=== PATIENT | female | born 1955 | race Caucasian/White ===

== ENCOUNTER 2020-04-27 07:45 | Outpatient (CLI) | payer MEDICARE ==
[~2020-04-27 07:45] MED LIST: ASPI-191 PO; DEXA4TAB PO; ISOS30TA8 PO; ISOSORBIDE PO; LOVA20TA2 PO; MELA5TAB14 PO; MELO7.5T31 PO; METO25TA35 PO; OXYC1TAB14 PO; SENN-211 PO; VITAMIN D
== END 2020-04-27 23:59 | disposition home or self-care (01) ==
LOC: ROC 07:45
PROVIDERS: ATTEND Radiology Radiation Oncology
DX: C79.31 Secondary malignant neoplasm of brain (principal); I25.10 Atherosclerotic heart disease of native coronary artery without angina pectoris; J43.9 Emphysema, unspecified; I13.0 Hypertensive heart and chronic kidney disease with heart failure and stage 1 through stage 4 chronic kidney disease, or unspecified chronic kidney disease; I50.9 Heart failure, unspecified; N18.9 Chronic kidney disease, unspecified; E78.5 Hyperlipidemia, unspecified; E87.1 Hypo-osmolality and hyponatremia; Z90.710 Acquired absence of both cervix and uterus; Z87.891 Personal history of nicotine dependence
CPT/HCPCS: 99214; G0463

== ENCOUNTER 2020-08-29 22:58 | Inpatient (IN) | payer MEDICARE ==
[~2020-08-29] VITALS: Ht 157.5 cm; Wt 64.8 kg
[2020-08-30 00:45] VITALS: BP 114/74
[2020-08-30 02:00] VITALS: BP 114/70
[2020-08-30] MEDS ORDERED: MORPHINE SULFATE 4 MG/ML, 1ML ONE (02:22)
[2020-08-30] MEDS: morphine SULFATE 10 MG/ML, 1ML IVPush PRN ×3 (02:25→11:49)
[2020-08-30] MEDS ORDERED: HEPARIN 5,000 UNITS/ML, 1ML IV ONE (02:30)
[2020-08-30] MEDS ORDERED: ONDANSETRON 2MG/ML, 2ML IVPush PRN (02:30)
[2020-08-30] MEDS ORDERED: LIDODERM 5% PATCH TD PRN (02:30)
[2020-08-30] MEDS ORDERED: LOPERAMIDE 2 MG CAPSULE PO PRN (02:30)
[2020-08-30] MEDS ORDERED: LACTATED RINGERS 1,000 ML IV SCH (02:30)
[2020-08-30] MEDS ORDERED: GUAIFENESIN/DM 200-20MG, 10ML UDC PO PRN (02:30)
[2020-08-30] MEDS ORDERED: CYCLOBENZAPRINE 10 MG TABLET PO PRN (02:30)
[2020-08-30] MEDS ORDERED: MELATONIN 5 MG TABLET PO PRN (02:30)
[2020-08-30] MEDS ORDERED: IBUPROFEN 600 MG TABLET PO PRN (02:30)
[2020-08-30] MEDS ORDERED: DOCUSATE 100 MG CAPSULE PO PRN (02:30)
[2020-08-30] MEDS ORDERED: ENALAPRILAT 1.25 MG/ML, 2ML IVPush PRN (02:30)
[2020-08-30] MEDS: HEPARIN 25,000 UNITS/250ML PMX 250 ML IV PRN (03:01)
[2020-08-30 03:09] LABS: BASOPHILS % (AUTO) 1 % (0-1); EOSINOPHILS % (AUTO) 0 % (1-7); LYMPHOCYTES % (AUTO) 13 % (22-44); MEAN CORPUSCULAR HEMOGLOBIN 29.9 pg (27.0-34.8); MEAN CORPUSCULAR HGB CONC 32.9 g/dL (32.4-35.8); MEAN PLATELET VOLUME 9.2 fL (7.4-10.4); MONOCYTES % (AUTO) 12 % (2-9); NEUTROPHILS % (AUTO) 75 % (42-75); PLATELET COUNT 196 x10^3/uL (130-400); RED BLOOD COUNT 4.42 x10^6/uL (3.82-5.3); RED CELL DISTRIBUTION WIDTH 15.3 % (9.6-15.2)
[2020-08-30 03:21] LABS: ALBUMIN 2.6 g/dL (3.4-5.0); ANION GAP 7 mmol/L (5-15); CALCIUM 8.6 mg/dL (8.5-10.1); CHLORIDE 109 mmol/L (98-107); CREATININE 0.86 mg/dL (0.55-1.02)
[2020-08-30 03:26] LABS: TROPONIN I 0.401 ng/mL (0.000-0.045)
[2020-08-30] MEDS: HYDROcodone/APAP 5/325 TABLET PO PRN ×4 (05:00→20:53)
[2020-08-30] MEDS: METOPROLOL TARTRATE 25 MG TAB PO SCH ×4 (06:01→20:44)
[2020-08-30 06:58] VITALS: BP 95/68
[2020-08-30 08:45] LABS: TROPONIN I 0.268 ng/mL (0.000-0.045)
[2020-08-30] MEDS ORDERED: ISOSORBIDE MONONITRATE ER 30 MG TABLET PO SCH (09:00)
[2020-08-30] MEDS ORDERED: FAMOTIDINE 20 MG TABLET PO SCH (09:00)
[2020-08-30] MEDS ORDERED: MORPHINE SULFATE 4 MG/ML, 1ML IV ONE (09:30)
[2020-08-30] MEDS ORDERED: MORPHINE SULFATE 4 MG/ML, 1ML IVPush ONE (09:30)
[2020-08-30] MEDS: HEPARIN 5,000 UNITS/ML, 1ML IV PRN ×2 (10:00→16:57)
[2020-08-30 12:37] VITALS: BP 91/62
[2020-08-30] MEDS: LACTOBACILLUS CHEW TABLET PO SCH ×2 (18:04→20:44)
[2020-08-30 18:08] VITALS: BP 92/63
[2020-08-30 20:07] VITALS: BP 102/69
[2020-08-30] MEDS: FAMOTIDINE 20 MG TABLET PO SCH (20:44)
[2020-08-30] MEDS ORDERED: LOVASTATIN 20 MG TABLET PO SCH (21:00)
[2020-08-30] MEDS: TEMAZEPAM 15 MG CAPSULE PO PRN (23:25)
[2020-08-31 00:28] VITALS: BP 100/62
[2020-08-31] MEDS ORDERED: ALBUTEROL/IPRATROPIUM 2.5MG/0.5MG, 3 ML NPPB PRN (01:30)
[2020-08-31] MEDS: morphine SULFATE 10 MG/ML, 1ML IVPush PRN ×4 (04:44→15:39)
[2020-08-31] MEDS: HEPARIN 25,000 UNITS/250ML PMX 250 ML IV PRN (05:49)
[2020-08-31 06:17] LABS: BASOPHILS % (AUTO) 1 % (0-1); EOSINOPHILS % (AUTO) 0 % (1-7); LYMPHOCYTES % (AUTO) 12 % (22-44); MEAN CORPUSCULAR HEMOGLOBIN 30.1 pg (27.0-34.8); MEAN CORPUSCULAR HGB CONC 32.7 g/dL (32.4-35.8); MONOCYTES % (AUTO) 10 % (2-9); NEUTROPHILS % (AUTO) 78 % (42-75); PLATELET COUNT 226 x10^3/uL (130-400); RED BLOOD COUNT 4.24 x10^6/uL (3.82-5.3); RED CELL DISTRIBUTION WIDTH 15.4 % (9.6-15.2)
[2020-08-31 06:25] LABS: ALANINE AMINOTRANSFERASE 15 U/L (12-78); ALBUMIN 2.5 g/dL (3.4-5.0); ANION GAP 6 mmol/L (5-15); CALCIUM 9.2 mg/dL (8.5-10.1); CHLORIDE 109 mmol/L (98-107); CREATININE 0.95 mg/dL (0.55-1.02)
[2020-08-31 06:35] LABS: ALKALINE PHOSPHATASE 55 U/L (45-117); BILIRUBIN,TOTAL 0.7 mg/dL (0.2-1.0); TOTAL PROTEIN 6.6 g/dL (6.4-8.2)
[2020-08-31 07:17] VITALS: BP 94/69
[2020-08-31] MEDS: METOPROLOL TARTRATE 25 MG TAB PO SCH ×2 (08:22→16:58)
[2020-08-31] MEDS: LACTOBACILLUS CHEW TABLET PO SCH ×3 (08:22→20:13)
[2020-08-31] MEDS: HYDROcodone/APAP 5/325 TABLET PO PRN ×3 (09:04→16:58)
[2020-08-31 12:24] VITALS: BP 98/64
[2020-08-31 18:45] VITALS: BP 89/62
[2020-08-31] MEDS: ACETAMINOPHEN 325 MG TABLET PO PRN (19:22)
[2020-08-31] MEDS: FAMOTIDINE 20 MG TABLET PO SCH (20:13)
[2020-08-31] MEDS: TEMAZEPAM 15 MG CAPSULE PO PRN (20:13)
[2020-09-01 02:33] VITALS: BP 90/62
[2020-09-01] MEDS: METOPROLOL TARTRATE 25 MG TAB PO SCH ×2 (05:35→17:33)
[2020-09-01] MEDS: HYDROcodone/APAP 5/325 TABLET PO PRN ×4 (05:36→20:30)
[2020-09-01] MEDS: HEPARIN 5,000 UNITS/ML, 1ML IV PRN ×2 (06:18→13:43)
[2020-09-01 07:30] VITALS: BP 88/62
[2020-09-01 07:41] LABS: BASOPHILS % (AUTO) 1 % (0-1); EOSINOPHILS % (AUTO) 1 % (1-7); LYMPHOCYTES % (AUTO) 13 % (22-44); MEAN CORPUSCULAR HEMOGLOBIN 30.1 pg (27.0-34.8); MEAN CORPUSCULAR HGB CONC 33.3 g/dL (32.4-35.8); MONOCYTES % (AUTO) 8 % (2-9); NEUTROPHILS % (AUTO) 78 % (42-75); PLATELET COUNT 229 x10^3/uL (130-400); RED BLOOD COUNT 3.98 x10^6/uL (3.82-5.3)
[2020-09-01 07:53] LABS: ANION GAP 7 mmol/L (5-15); CALCIUM 8.8 mg/dL (8.5-10.1); CHLORIDE 107 mmol/L (98-107); CREATININE 0.88 mg/dL (0.55-1.02)
[2020-09-01] MEDS ORDERED: POLYETHYLENE GLYCOL 17 GM PACKET NG ONE (08:00)
[2020-09-01] MEDS ORDERED: POLYETHYLENE GLYCOL 17 GM PACKET PO PRN (08:00)
[2020-09-01] MEDS ORDERED: BISACODYL 10 MG SUPP PR PRN (08:00)
[2020-09-01] MEDS: LACTOBACILLUS CHEW TABLET PO SCH ×3 (08:21→20:31)
[2020-09-01] MEDS: SENNA/DOCUSATE TABLET PO SCH (08:21)
[2020-09-01] MEDS: morphine SULFATE 10 MG/ML, 1ML IVPush PRN (08:21)
[2020-09-01] MEDS: HEPARIN 25,000 UNITS/250ML PMX 250 ML IV PRN (11:23)
[2020-09-01 13:25] VITALS: BP 88/60
[2020-09-01 20:25] VITALS: BP 102/71
[2020-09-01] MEDS: FAMOTIDINE 20 MG TABLET PO SCH (20:30)
[2020-09-01] MEDS: TEMAZEPAM 15 MG CAPSULE PO PRN (20:31)
[2020-09-02 01:36] VITALS: BP 104/74
[2020-09-02 02:31] LABS: BASOPHILS % (AUTO) 1 % (0-1); EOSINOPHILS % (AUTO) 2 % (1-7); LYMPHOCYTES % (AUTO) 18 % (22-44); MEAN CORPUSCULAR HEMOGLOBIN 30.2 pg (27.0-34.8); MEAN CORPUSCULAR HGB CONC 33.4 g/dL (32.4-35.8); MEAN PLATELET VOLUME 9.4 fL (7.4-10.4); MONOCYTES % (AUTO) 11 % (2-9); NEUTROPHILS % (AUTO) 69 % (42-75); PLATELET COUNT 255 x10^3/uL (130-400); RED BLOOD COUNT 3.99 x10^6/uL (3.82-5.3); RED CELL DISTRIBUTION WIDTH 15.4 % (9.6-15.2)
[2020-09-02 02:43] LABS: ANION GAP 6 mmol/L (5-15); CALCIUM 9.1 mg/dL (8.5-10.1); CHLORIDE 106 mmol/L (98-107); CREATININE 0.85 mg/dL (0.55-1.02)
[2020-09-02] MEDS: HYDROcodone/APAP 5/325 TABLET PO PRN ×4 (03:48→20:36)
[2020-09-02] MEDS: ACETAMINOPHEN 325 MG TABLET PO PRN (04:53)
[2020-09-02 05:01] VITALS: BP 85/60
[2020-09-02 06:43] VITALS: BP 92/66
[2020-09-02] MEDS: LACTOBACILLUS CHEW TABLET PO SCH ×3 (07:57→20:36)
[2020-09-02] MEDS: SENNA/DOCUSATE TABLET PO SCH (07:57)
[2020-09-02] MEDS: HEPARIN 25,000 UNITS/250ML PMX 250 ML IV PRN (08:14)
[2020-09-02 12:40] VITALS: BP 107/70
[2020-09-02 19:01] VITALS: BP 101/71
[2020-09-02] MEDS: TEMAZEPAM 15 MG CAPSULE PO PRN (20:35)
[2020-09-02] MEDS: FAMOTIDINE 20 MG TABLET PO SCH (20:36)
[2020-09-02 23:38] VITALS: BP 102/76
[2020-09-03] MEDS: HYDROcodone/APAP 5/325 TABLET PO PRN ×3 (00:29→11:30)
[2020-09-03 02:00] VITALS: BP 102/76
[2020-09-03 06:47] VITALS: BP 93/68
[2020-09-03] MEDS: HEPARIN 25,000 UNITS/250ML PMX 250 ML IV PRN (07:22)
[2020-09-03] MEDS: APIXABAN 5 MG TABLET PO SCH ×2 (08:30→20:18)
[2020-09-03] MEDS: LACTOBACILLUS CHEW TABLET PO SCH ×3 (08:31→20:18)
[2020-09-03] MEDS: SENNA/DOCUSATE TABLET PO SCH (08:31)
[2020-09-03] MEDS ORDERED: GADOTERATE 10 MMOL/20ML SYR ONE (11:10)
[2020-09-03 12:18] VITALS: BP 103/73
[2020-09-03 13:07] VITALS: BP 139/90
[2020-09-03] MEDS ORDERED: METOPROLOL TARTRATE 25 MG TAB ONE (13:15)
[2020-09-03] MEDS: METOPROLOL TARTRATE 25 MG TAB PO SCH ×2 (13:22→21:49)
[2020-09-03 18:40] VITALS: BP 99/68
[2020-09-03] MEDS: FAMOTIDINE 20 MG TABLET PO SCH (20:18)
[2020-09-04 02:31] VITALS: BP 113/75
[2020-09-04] MEDS: METOPROLOL TARTRATE 25 MG TAB PO SCH (06:15)
[2020-09-04 08:35] VITALS: BP 105/70
[2020-09-04] MEDS: SENNA/DOCUSATE TABLET PO SCH (08:51)
[2020-09-04] MEDS: APIXABAN 5 MG TABLET PO SCH (08:51)
[2020-09-04] MEDS: HYDROcodone/APAP 5/325 TABLET PO PRN (08:51)
[2020-09-04] MEDS: LACTOBACILLUS CHEW TABLET PO SCH (08:51)
[2020-09-04] MEDS ORDERED: HYDR-2214 PO (08:59)
[2020-09-04] MEDS ORDERED: METO25TA35 PO (08:59)
[2020-09-04] MEDS ORDERED: SENN-211 PO (08:59)
[2020-09-04] MEDS ORDERED: APIX5TAB PO (08:59)
[2020-09-04 12:55] VITALS: BP 120/74
== END 2020-09-04 17:08 | disposition home or self-care (01) | DRG 175 ==
LOC: 4WST 08-30 00:34
PROVIDERS: ADMIT Internal Medicine; ATTEND Family Medicine
DX: I26.92 Saddle embolus of pulmonary artery without acute cor pulmonale (principal); J96.01 Acute respiratory failure with hypoxia; I21.A1 Myocardial infarction type 2; C34.90 Malignant neoplasm of unspecified part of unspecified bronchus or lung; C79.31 Secondary malignant neoplasm of brain; I47.1 Supraventricular tachycardia; J98.11 Atelectasis; I10 Essential (primary) hypertension; E78.5 Hyperlipidemia, unspecified; I25.10 Atherosclerotic heart disease of native coronary artery without angina pectoris; F17.210 Nicotine dependence, cigarettes, uncomplicated; K44.9 Diaphragmatic hernia without obstruction or gangrene; K31.89 Other diseases of stomach and duodenum; I87.8 Other specified disorders of veins; Z88.2 Allergy status to sulfonamides; Z88.8 Allergy status to other drugs, medicaments and biological substances; Z82.49 Family history of ischemic heart disease and other diseases of the circulatory system; Z83.3 Family history of diabetes mellitus; Z79.899 Other long term (current) drug therapy
CPT/HCPCS: 36415; 36600; 70553; 71045; 80048; 80053; 80069; 82803; 83735; 84100; 84443; 84484; 85025; 85520; 93005; 93306; G0378; J1644; A9575; J2270; J7120